=== PATIENT | female | born 1995 | race Asian ===

== ENCOUNTER 2018-08-07 11:11 | Emergency (ER) | payer MEDICAID ==
[2018-08-07 11:40] LABS: % BASOPHILS 0.1 % (0.0-2.0); % MONOCYTES 8.1 % (2.0-10.0); % NEUTROPHILS 71.8 % (40.0-80.0); EOSINOPHILE ABSOLUTE 0.1 Th/cmm (0.1-0.4); HEMATOCRIT 40.5 % (41.0-60); HEMOGLOBIN 13.8 gm/dL (12-16); LYMPHOCYTE ABSOLUTE 1.7 Th/cmm (1.5-3.0); MEAN CELL VOLUME 86.8 fl (81-100); MEAN CORPUSCULAR HEMOGLOBIN 29.6 pg (27.0-31.0); MEAN CORPUSCULAR HGB CONC 34.1 pg (28.0-36.0); MEAN PLATELET VOLUME 7.6 fl; MONOCYTE ABSOLUTE 0.7 Th/cmm (0.3-1.0); NEUTROPHILE ABSOLUTE 6.5 Th/cmm (1.8-8.0); PLATELET COUNT 212 Th/cmm (150-400); RED BLOOD COUNT 4.67 Mil/cmm (3.80-5.10); RED CELL DISTRIBUTION WIDTH 12.3 % (11.5-20.0)
[2018-08-07 11:54] LABS: ACETAMINOPHEN < 10.0 ug/mL (10.0-30.0); ALB/GLOB RATIO 1.4 (1.0-1.8); ALBUMIN 4.3 gm/dL (3.7-5.3); ALKALINE PHOSPHATASE 46 U/L (34-104); ANION GAP 12.2 (7.0-16.0); BILIRUBIN,TOTAL 0.6 mg/dL (0.3-1.0); BUN - UREA NITROGEN 12 mg/dL (7-25); CALCIUM SERUM 9.1 mg/dL (8.6-10.3); CARBON DIOXIDE 21.5 mEq/L (21.0-31.0); CHLORIDE 108 mEq/L (98-107); CREATININE - SERUM 0.6 mg/dL (0.6-1.2); GFR AFRICAN-AMERICAN > 60.0 ml/min (>90); GFR NON AFRICAN-AMERICAN > 60.0 ml/min; GLUCOSE 86 mg/dL (70-105); POTASSIUM SERUM 3.7 mEq/L (3.5-5.1); SGOT 13 U/L (13-39); SGPT/ALT 10 U/L (7-52); SODIUM SERUM 138 mEq/L (136-145); TOTAL PROTEIN,SERUM 7.3 gm/dL (6.0-8.3)
[2018-08-07 11:55] LABS: SALICYLATES (ASPIRIN) < 25.0 mg/L (30.0-100.0)
--- NOTE | 2018-08-07 12:14 | ED Physician Chart ---
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 she states that she has had psych problems in the past and has family members with psych issues. Allergies:: Allergies Allergy/AdvReac Type Severity Reaction Status Date / Time No Known Allergies Allergy Verified 08/07/18 11:18 Vitals:: Vital Signs - 8 hr 08/07/18 08/07/18 11:19 11:26 Temp 98.8 F 98.8 F HR 104 93 RR 17 16 BP 136/83 136/83 O2 Sat % 97 98 Historian:: Patient Review:: Nurse's Note Reviewed ED Review of Systems - Review of Systems General/Constitutional: No fever, No chills, No weight loss, No weakness, No diaphoresis, No edema, No loss of appetite Skin: No skin lesions, No rash, No bruising Head: No headache, No light-headedness Eyes: No loss of vision, No pain, No diplopia ENT: No earache, No nasal drainage, No sore throat, No tinnitus Neck: No neck pain, No swelling, No thyromegaly, No stiffness, No mass noted Cardio Vascular: No chest pain, No palpitations, No PND, No orthopnea, No edema Pulmonary: No SOB, No cough, No sputum, No wheezing GI: No nausea, No vomiting, No diarrhea, No pain, No melena, No hematochezia, No constipation, No hematemesis G/U: No dysuria, No frequency, No hematuria Musculoskeletal: No bone or joint pain, No back pain, No muscle pain Endocrine: No polyuria, No polydipsia Psychiatric: Prior psych history, No prior psych history, Depression, No anxiety , Suicidal ideation Hematopoietic: No bruising, No lymphadenopathy Allergic/Immuno: No urticaria, No angioedema Neurological: No syncope, No focal symptoms, No weakness, No paresthesia, No headache, No seizure, No dizziness, No confusion, No vertigo ED Past Medical History - Past Medical History Obtainable: Yes Past Medical History: No significant medical hx Family History: None Social History: Non Smoker, No Alcohol, No Drug Use, Single Surgical History: other (foot and dental surgery) Family Medical History - Family Member Mother History Unknown: Yes ED Physical Exam - Physical Examination General/Constitutional: Awake, Well-developed, well-nourished, Alert, No distress, GCS 15, Non-toxic appearing, Ambulatory Head: Atraumatic Eyes: Lids, conjuctiva normal, PERRL, EOMI Skin: Nl inspection, No rash, No skin lesions, No ecchymosis, Well hydrated, No lymphadenopathy ENMT: External ears, nose nl, Nasal exam nl, Lips, teeth, gums nl Neck: Nontender, Full ROM w/o pain, No JVD, No nuchal rigidity, No bruit, No mass, No stridor Respiratory: Nl effort/Exclusion, Clear to Auscultation, No Wheeze/Rhonchi/Rales Cardio Vascular: RRR, No murmur, gallop, rubs, NL S1 S2 GI: No tenderness/rebounding/guarding, No organomegaly, No hernia, Normal BS's, Nondistended, No mass/bruits, No McBurney tenderness : No CVA tenderness Extremities: No tenderness or effusion, Full ROM, normal strength in all extremities, No edema, Normal digits & nails Neuro/Psych: Alert/oriented, DTR's symmetric, Normal sensory exam, Normal motor strength, Judgement/insight normal, Mood normal (depressed), Normal gait, No focal deficits Misc: Normal back, No paraspinal tenderness ED Labs/Radiology/EKG Results - Lab Results Results: Laboratory Tests 08/07/18 08/07/18 08/07/18 11:30 11:30 11:30 WBC 9.0 RBC 4.67 Hgb 13.8 Hct 40.5 L MCV 86.8 MCH 29.6 MCHC Differential 34.1 RDW 12.3 Plt Count 212 MPV 7.6 Neutrophils % 71.8 Lymphocytes % 19.0 L Monocytes % 8.1 Eosinophils % 1.0 Basophils % 0.1 PTT (Actin FS) 24.5 L Sodium Potassium Chloride Carbon Dioxide Anion Gap BUN Creatinine Est GFR ( Amer) Est GFR (Non-Af Amer) BUN/Creatinine Ratio Glucose Calcium Total Bilirubin AST ALT Alkaline Phosphatase Troponin I < 0.01 L Total Protein Albumin Globulin Albumin/Globulin Ratio Serum , Qual Salicylates Acetaminophen Ethyl Alcohol 08/07/18 08/07/18 11:30 11:30 WBC RBC Hgb Hct MCV MCH MCHC Differential RDW Plt Count MPV Neutrophils % Lymphocytes % Monocytes % Eosinophils % Basophils % PTT (Actin FS) Sodium 138 Potassium 3.7 Chloride 108 H Carbon Dioxide 21.5 Anion Gap 12.2 BUN 12 Creatinine 0.6 Est GFR ( Amer) > 60.0 Est GFR (Non-Af Amer) > 60.0 BUN/Creatinine Ratio 20.0 Glucose 86 Calcium 9.1 Total Bilirubin 0.6 AST 13 ALT 10 Alkaline Phosphatase 46 Troponin I Total Protein 7.3 Albumin 4.3 Globulin 3.0 Albumin/Globulin Ratio 1.4 Serum , Qual NEGATIVE Salicylates < 25.0 L Acetaminophen < 10.0 L Ethyl Alcohol < 10 - Radiology Results Results: chest x-ray = nad ED Assessment - Assessment General Assessment: depression ED Septic Shock - . Is Septic Shock (SBP<90, OR Lactate>4 mmol\L) present?: No - <6hrs of presentation: Vital Signs: Vital Signs - 8 hr 08/07/18 08/07/18 11:19 11:26 Temp 98.8 F 98.8 F HR 104 93 RR 17 16 BP 136/83 136/83 O2 Sat % 97 98 ED Reassessment (Disposition) - Diagnosis Diagnosis:: suicidal ideation - Aftercare/Follow up Instructions Notes:: cleared for psych evaluation
--- NOTE | 2018-08-07 12:47 | Diagnostic Imaging Report ---
Chest x-ray single view History: Cough The heart size is normal. No focal pulmonary parenchymal processes. No hilar or mediastinal abnormalities. Impression: No acute abnormalities
--- NOTE | 2018-08-07 12:47 | Diagnostic Imaging Report ---
CT scan of the brain without contrast History: Headache Total DLP equals 609 CTDI equals 35.1 Axial sections were obtained from the base of the skull to the vertex. There is a normal ventricular system size. No focal parenchymal lesions are seen. No evidence of any mass effect or shift of midline structures. No extra-axial masses or abnormal fluid collections. Impression: Negative examination
[2018-08-07 13:01] LABS: URINE SOURCE CLEAN C
[2018-08-07 13:09] LABS: URINE BILIRUBIN NEGATIVE (NEGATIVE); URINE BLOOD NEGATIVE (NEGATIVE); URINE GLUCOSE (UA) NEGATIVE (NEGATIVE); URINE KETONE NEGATIVE (NEGATIVE); URINE LEUKOCYTE ESTERASE TRACE (NEGATIVE); URINE MICROSCOPIC INDICATED? YES; URINE NITRATE NEGATIVE (NEGATIVE); URINE PH 6.5 (4.6 - 8.0); URINE PROTEIN NEGATIVE (NEGATIVE); URINE UROBILINOGEN 0.2 E.U./dL (0.2 - 1.0)
[2018-08-07 13:13] LABS: URINE CLARITY HAZY (CLEAR); URINE COLOR YELLOW
[2018-08-07 13:16] LABS: URINE BACTERIA FEW /hpf (NONE SEEN); URINE EPITHELIAL CELLS MANY /lpf (FEW); URINE RBC 0-2 /hpf (0-5)
[2018-08-07 13:19] LABS: AMPHETAMINE URINE NEGATIVE (NEGATIVE); BARBITURATES URINE NEGATIVE (NEGATIVE); BENZODIAZEPINES QUAL URINE NEGATIVE (NEGATIVE); CANNABINOID THC NEGATIVE (NEGATIVE); COCAINE METABOLITE QUAL URINE NEGATIVE (NEGATIVE); METHADONE URINE NEGATIVE (NEGATIVE); METHAMPHETAMINES QUAL URINE NEGATIVE (NEGATIVE); OPIATES (MORPHINE) QUAL. URINE NEGATIVE (NEGATIVE); PHENCYCLIDINE (PCP) URINE NEGATIVE (NEGATIVE); TRICYCLICS (TCA) QUAL. URINE NEGATIVE (NEGATIVE)
--- NOTE | 2018-08-07 20:04 | Consultation ---
DATE OF CONSULTATION: 08/07/2018 PSYCHIATRIC CONSULT AGE: 23. SEX: Female. PHYSICIAN: RAVI, Dr. Melgoza. BANQUET KITCHEN SUPERVISOR: Dr. Pisano. TYPE OF THE REPORT: Psychiatric consult. REASON FOR THE CONSULT: Overdose. HISTORY OF PRESENT ILLNESS: The patient is a 23-year-old female who overdosed on Tylenol and possible Motrin. The patient said that she has been having problems with her . She has been for 4 years, for 5 months. The patient also is a student at [employer]. She has been depressed and feeling hopeless and helpless lately and she has been contemplating suicide till she overdosed on pills today. The patient said that she had history of bipolar 10 years ago and she was in treatment at that time, but since then she never got any other treatment. She blames herself for all her issues and the problems that happened between her and her . PAST PSYCHIATRIC HISTORY: As mentioned above. PAST MEDICAL HISTORY: Overdose. SOCIAL HISTORY: The patient is and was living with her and currently living by herself and her also is living separately for 5 months. The patient denies any alcohol or street drug use. 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. She denies any legal issues or abuse issues. MENTAL STATUS EXAM: The patient appears her stated age. Sad affect. Depressed mood. Low tone and rate of speech. Thought process is mainly goal directed. The patient denies any auditory or visual hallucinations or delusions. She denies any thoughts of homicide, but admits to suicidal ideations and overdosed on pills. The patient is alert and oriented to time, place, person, and situation. Intact immediate, recent and remote memories. Fair insight. Poor judgment with her overdose on pills. Seems to be of average intelligence based on her verbal ability. ASSESSMENT: PRIMARY DIAGNOSES: Bipolar disorder, depressed episode, severe, without psychotic features. TREATMENT PLAN: We will place the patient on 5150 hold. The patient will need admission to a psych facility. At this time, the patient is still high risk for suicide. JOB# [id number]
[2018-08-09] MEDS ORDERED: Sulfamethoxazole/TMP 800/160mg Tab PO ONE (07:14)
[2018-08-09] MEDS ORDERED: Sulfamethoxazole/TMP 800/160mg Tab ONE (07:38)
--- NOTE | 2018-08-11 05:15 | Progress Notes ---
DATE: 08/10/2018 FOLLOWUP NOTE A 23-year-old female attempted suicide a few days prior, overdosed on ibuprofen and Tylenol PM in a suicide effort, came to the ER, motivated to get help. The patient notes that she is somewhat more hopeful, more optimistic, still depressed, withdrawn, feeling somewhat unstable, poor sleep, poor appetite. The patient notes she has been on medications in the past but does not recall what she was on. PAST PSYCHIATRIC HISTORY: Suicide efforts in the past. SOCIAL HISTORY: The patient was born in [facility], had been in the [place], did not see any combat. Medications were noted. Medically cleared on 5150 hold. The patient lives alone. MENTAL STATUS EXAMINATION: Stated age. Fair eye contact. Speech within normal limits. Mood depressed. Affect withdrawn. Thought processes were grossly linear. Status post an overdose effort. No HI. No psychotic symptoms. Insight and judgment better. Impulse control still questionable. PROVISIONAL DIAGNOSIS: Mood unspecified, likely bipolar affective disorder, most recent episode depressed. Medical: Please see full H and P. RECOMMENDATIONS AND PLAN: Initiate low dose Seroquel. We will err on the side of caution and initiate a 14-day hold given multiple risk factors for self-harm, recent overdose, history of overdose and suicide attempts. The patient lives alone. [facility]# [id number]
== END 2018-08-11 17:44 ==
LOC: ER 11:11
DX: F32.9 Major depressive disorder, single episode, unspecified (principal); T39.1X2A Poisoning by 4-Aminophenol derivatives, intentional self-harm, initial encounter; R45.851 Suicidal ideations; Y92.89 Other specified places as the place of occurrence of the external cause
CPT/HCPCS: 99285; 96372; 93005; 71045; 70450; 84484; 36415; 80307; 84443; 85025; 85730; 81001; 80329 ×2; 80320; 84703; 80053; J0696; 87086-90; Z7610